=== PATIENT | male | born 1945 | race Caucasian/White ===

== ENCOUNTER → 2020-04-05 | Outpatient (CLI) | payer OTHER, MEDICARE ==
[~2020-04-05] MED LIST: ALLOPURINOL 10100 M3 PO; ASA81BEC PO; CARVEDILOL12.5 MG PO; CHOLECALCIFEROL1 GM PO; EMU OIL TOP; GAS RELIEF80 MG PO; LOPERAMIDE2 MG PO; LORATIDINE 10 M10 M1 PO; MELATONIN3 M1 PO; METFORMIN HCL500 M3 PO; NEPHRO-VITE TA0.8 MG PO; NEURONTIN100 MG PO; NITROSTAT0.4 M1 SUBLING; PRAVACHOL 20 MG20 M1 PO; PROAIR HFA8.5 GM INH; PROSCAR 5MG TABL5 M1 PO; PROTONIX40 M2 PO; QUESTRAN PACKET4 GM PO; RAYOS5 MG PO; SERTRALINE HCL100 MG PO; TYLENOL325 M1 PO; VITAMIN A & D OI5 GM PO; VITAMIN B-121000 MC2 PO; VOLTAREN GEL 1100 G1 TOP
== END ==
LOC: SJCVCIMAG 12:49
PROVIDERS: ATTEND Nuclear Medicine Nuclear Cardiology
DX: Z01.818 Encounter for other preprocedural examination (principal); I73.9 Peripheral vascular disease, unspecified

== ENCOUNTER → 2020-04-05 | Outpatient (CLI) | payer OTHER, MEDICARE ==
[~2020-04-05] VITALS: Ht 180.3 cm; Wt 104.3 kg
[2020-04-05 08:05] VITALS: BP 170/82
[2020-04-05 08:16] LABS: HEMATOCRIT 40.5 % (42.0-52.0); HEMOGLOBIN 13.4 gm/dL (14.0-18.0); MCH 32.7 pg (26.0-34.0); MCHC 33.2 g/dL (28.0-37.0); MCV 98.6 fL (80.0-100.0); RBC 4.11 mil/uL (4.50-6.00); WBC 6.2 thou/uL (4.0-11.0)
--- NOTE | 2020-04-05 08:27 | EKG ---
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
[2020-04-05 08:39] LABS: CALCIUM 9.8 mg/dL (8.5-10.1); CREATININE 1.4 mg/dL (0.7-1.3); POTASSIUM 4.5 mmol/L (3.5-5.1)
[2020-04-05 11:15] VITALS: BP 133/64
[2020-04-05 11:30] VITALS: BP 114/63
[2020-04-05 11:50] VITALS: BP 104/58
--- NOTE | 2020-04-06 10:46 | HC ---
[facility] [place] [address] CONSULTATION Name: DERRICK HESTER Room #: REG [facility].#: [id number] Admission: 04/05/20 Attend Phys: Bradley Raphael MD Discharge: Date of : 49 Report #: [id number] THIS REPORT FOR: cc: Georgina Durbin MD, Nicolle MD Forman,Johnathan Burch MD ~ CC: Bradley Durbin DATE OF SERVICE: 04/05/2020 We were asked to see the patient by Dr. Raphael. HISTORY OF PRESENT ILLNESS: The patient is a 74-year-old who just had arteriography. The patient has known peripheral arterial occlusive disease and has nonhealing lesion in the left foot. The patient is status post right above-knee amputation for other lower extremity arterial occlusive disease. 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 This is reasonable, but suboptimal runoff. We note that the patient has multiple past medical problems including type 2 diabetes mellitus, coronary artery disease, renal transplantation in 2004. As mentioned, he had a right lower extremity gangrene that kept a prolonged hospitalization at [facility] from 11/21/2019 until 01/17/2020 with altered mental status. The patient was treated with IV antibiotics, initially went [id number] amputation at a [facility]. He continued to have gangrene of the amputation stump and was readmitted for right above-knee amputation. The patient also has chronic immunosuppression for his renal transplant, comorbid problems of coronary artery disease with cardiomyopathy. The patient has diabetic neuropathy and retinopathy. The patient is on multiple medications including allopurinol, aspirin, carvedilol, vitamin D, vitamin B12, finasteride, fluticasone nasal spray, gabapentin, loratadine, melatonin, metformin, Nephro-Ulices, pantoprazole, pravastatin, prednisone, quetiapine, sertraline, Tacrolimus. ALLERGIES: CODEINE, LACTOSE, PEANUTS, SULFA DRUGS, TETRACYCLINE. OTHER PAST HISTORY: As mentioned, renal transplantation. SOCIAL HISTORY: Lives with and son, otherwise not contributory. Denies alcohol, tobacco. [facility] [address] [place] [address] CONS[facility]ATION Name: [id number]mission: 04/05/20 Attend Phys: Bradley Raphael MD Discharge: Date of : 49 Report #: [id number] FAMILY HISTORY: No history of precocious coronary disease. REVIEW OF SYSTEMS: CONSTITUTIONAL: Generalized fatigue. Denies fever. EYES: Impaired vision, chronic. ENT: No hearing problems, no sinus problems. RESPIRATORY: Exertional dyspnea. CARDIAC: Denies chest pain, palpitations. GASTROINTESTINAL: Denies nausea, vomiting, diarrhea. GENITOURINARY: Denies urgency, hematuria. HEMATOLOGIC: Denies bruisability or bleeding. ENDOCRINE: No goiter, no tremor. MUSCULOSKELETAL: Joint pain. The patient is not ambulatory. We note nonhealing lesion of the foot. NEUROLOGIC: Admits to diabetic retinopathy in the distal right lower extremity. PHYSICAL EXAMINATION: GENERAL: The patient is in bed, status post arteriogram. He is awake and alert, afebrile, VITAL SIGNS: Respiratory rate 16, blood pressure 110/60. HEENT: No scleral icterus, no arcus. NECK: No mass, no bruit. CHEST: Clear. HEART: Rhythm regular, no murmur. Heart tones are distant. ABDOMEN: Soft. EXTREMITIES: We note right below-knee amputation and left foot is bandaged. I do note an incision in the left thigh from saphenous vein harvest. No distal pulses, left lower extremity. As mentioned, the patient has infrapopliteal occlusion and this would require a long bypass. The patient has limited saphenous vein, but we will obtain a vein mapping. It may be unrealistic to expect ambulation in this patient, but certainly preserving a limb is valuable for pivot and transfer. We will discuss options for surgery further when the amount of conduit is none. Thank you for the consult. <ELECTRONICALLY SIGNED> By: Johnathan Horn MD 04/06/20 1046 [id number] Johnathan Horn MD /nt
== END | disposition home or self-care (01) ==
LOC: CATH 06:49
PROVIDERS: ATTEND Nuclear Medicine Nuclear Cardiology
DX: I70.212 Atherosclerosis of native arteries of extremities with intermittent claudication, left leg (principal); I70.248 Atherosclerosis of native arteries of left leg with ulceration of other part of lower leg; L97.929 Non-pressure chronic ulcer of unspecified part of left lower leg with unspecified severity; I70.1 Atherosclerosis of renal artery; I12.0 Hypertensive chronic kidney disease with stage 5 chronic kidney disease or end stage renal disease; E11.22 Type 2 diabetes mellitus with diabetic chronic kidney disease; N18.6 End stage renal disease; I25.10 Atherosclerotic heart disease of native coronary artery without angina pectoris; E11.319 Type 2 diabetes mellitus with unspecified diabetic retinopathy without macular edema; N40.0 Benign prostatic hyperplasia without lower urinary tract symptoms; M10.9 Gout, unspecified; M19.90 Unspecified osteoarthritis, unspecified site; J45.909 Unspecified asthma, uncomplicated; Z98.890 Other specified postprocedural states; Z79.899 Other long term (current) drug therapy; Z85.828 Personal history of other malignant neoplasm of skin; Z87.891 Personal history of nicotine dependence; Z95.1 Presence of aortocoronary bypass graft; Z95.0 Presence of cardiac pacemaker; Z94.0 Kidney transplant status; Z82.49 Family history of ischemic heart disease and other diseases of the circulatory system